=== PATIENT | female | born 1975 | race Caucasian/White ===

== ENCOUNTER → 2016-05-31 | Outpatient (REF) | payer OTHER | LOC: M SFHCWAGY 12:01 | PROVIDERS: ATTEND Nurse Practitioner Women's Health | DX: Z12.4 Encounter for screening for malignant neoplasm of cervix (principal) ==

== ENCOUNTER → 2016-08-19 | Outpatient (CLI) | payer OTHER ==
--- NOTE | 2016-08-19 12:24 | REP ---
REASON: Pain on the bottom of the foot. PRIORS: None. FINDINGS: The joint spaces are symmetric and relatively well maintained. There is no evidence of acute fracture or destructive osseous lesion. There is a rather large plantar calcaneal heel spur and a small developing retrocalcaneal heel spur. If plantar fasciitis is of clinical concern, then an MRI examination may be helpful. IMPRESSION: Negative. Signed by Steve Valverde DO 08/19/2016 03:56 P
== END ==
LOC: M LRY 11:45
PROVIDERS: ATTEND Nurse Practitioner Family
DX: M79.672 Pain in left foot (principal)

== ENCOUNTER → 2017-07-18 | Outpatient (CLI) | payer BC | LOC: M WHC 11:06 | DX: Z12.31 Encounter for screening mammogram for malignant neoplasm of breast (principal) | CPT/HCPCS: 77067 ==

== ENCOUNTER → 2017-07-18 | Outpatient (REF) | payer BC | LOC: M SFHCWAGY 11:13 | DX: Z12.4 Encounter for screening for malignant neoplasm of cervix (principal) | CPT/HCPCS: G0123 ==

== ENCOUNTER → 2018-09-19 | Outpatient (CLI) | payer BC ==
--- NOTE | 2018-09-19 20:12 | REPMRS ---
Patient History The patient states she had a clinical breast exam in 09/2018. Patient had first child at age 31. Family history of colorectal cancer at age 50 or over in maternal grandfather, pancreatic cancer at age 50 or over in maternal grandmother, pancreatic cancer and prostate cancer in maternal uncle. Taking hormonal contraceptives for 16 years. Digital Woman Screen Mammo: September 19, 2018 - Exam #: [id number] Bilateral CC and MLO view(s) were taken. Technologist: Karmen Calvillo, Technologist Prior study comparison: July 18, 2017, bilateral digital woman screen mammo performed at [facility]. April 24, 2015, digital woman screen mammo performed at [facility]. FINDINGS: There are scattered fibroglandular densities. There has been no change in the appearance of the mammogram from the prior studies. There is a mild amount of scattered fibroglandular density which is fairly symmetric. There is no interval development of dominant mass, architectural distortion, or grouped microcalcification suggestive of malignancy. 3-D tomosynthesis shows no additional findings. Assessment: BI-RADS/ACR category 1 mammogram. Negative Mammogram. Recommendation Routine screening mammogram of both breasts in 1 year (for women over age 40). This patient's Lifetime Breast Cancer Risk is estimated at 14.2 %. This mammogram was interpreted with the aid of an FDA-approved computer-aided dectection system. Electronically Signed By: Delon Gregory MD 09/19/182011
== END ==
LOC: M WHC 15:10
PROVIDERS: ATTEND Nurse Practitioner Women's Health
DX: Z12.31 Encounter for screening mammogram for malignant neoplasm of breast (principal); Z79.3 Long term (current) use of hormonal contraceptives

== ENCOUNTER 2018-12-18 09:33 | Day surgery (SDC) | payer BC ==
[~2018-12-18] VITALS: Ht 152.4 cm; Wt 107.7 kg
[~2018-12-18 09:33] MED LIST: NUVAMIS2; PLAQ200T4 PO
[2018-12-18] MEDS ORDERED: NS 1,000 ML IV ONE (10:30)
[2018-12-18] MEDS ORDERED: PROPOFOL 200 MG/20 ML VIAL As Ordered ONE ×4 (10:46→11:45)
[2018-12-18] MEDS ORDERED: LIDOCAINE 2% INJ 100 MG/5 ML SDV (FOR ANES.) As Ordered ONE (10:46)
[2018-12-18] MEDS ORDERED: EPINEPHrine 1MG/10ML SYRINGE 1.5IN As Ordered ONE (11:05)
[2018-12-18] MEDS ORDERED: EPINEPHrine INJ 1 MG/ML 1ML AMP As Ordered ONE (11:09)
--- NOTE | 2018-12-18 12:16 | ROOR ---
Patient Name: Marcia Chan Procedure Date: 12/18/2018 9:50 AM Date of : 1975 Age: 43 Room: [facility] Gender: Female Note Status: Finalized Procedure: Upper GI endoscopy Indications: Dyspepsia, Nausea Providers: Myron Barbosa MD Referring MD: Tyra Jones NP Requesting Provider: Medicines: Monitored Anesthesia Care Complications: No immediate complications. Procedure: Pre-Anesthesia Assessment: - Prior to the procedure, a History and Physical was performed, and patient medications and allergies were reviewed. The patient is competent. The risks and benefits of the procedure and the sedation options and risks were discussed with the patient. All questions were answered and informed consent was obtained. Patient identification and proposed procedure were verified by the physician, the nurse and the anesthesiologist in the procedure room. Mental Status Examination: alert and oriented. Airway Examination: normal oropharyngeal airway and neck mobility. Respiratory Examination: clear to auscultation. CV Examination: normal. Prophylactic Antibiotics: The patient does not require prophylactic antibiotics. Prior Anticoagulants: The patient has taken no previous anticoagulant or antiplatelet agents. ASA Grade Assessment: II - A patient with mild systemic disease. After reviewing the risks and benefits, the patient was deemed in satisfactory condition to undergo the procedure. The anesthesia plan was to use monitored anesthesia care (MAC). Immediately prior to administration of medications, the patient was re-assessed for adequacy to receive sedatives. The heart rate, respiratory rate, oxygen saturations, blood pressure, adequacy of pulmonary ventilation, and response to care were monitored throughout the procedure. The physical status of the patient was re-assessed after the procedure. The Endoscope was introduced through the mouth, and advanced to the second part of duodenum. The upper GI endoscopy was accomplished without difficulty. The patient tolerated the procedure well. Findings: The examined esophagus was normal. The Z-line was regular and was found 39 cm from the incisors. Scattered mild inflammation characterized by erythema and granularity was found in the gastric antrum. Biopsies were taken with a cold forceps for Helicobacter pylori testing. Verification of patient identification for the specimen was done by the physician and nurse using the patient's name, date and medical record number. Estimated blood loss was minimal. The ampulla, duodenal bulb and second portion of the duodenum were normal. Impression: - Normal esophagus. - Z-line regular, 39 cm from the incisors. - Gastritis. Biopsied. - Normal ampulla, duodenal bulb and second portion of the duodenum. Recommendation: - Patient has a contact number available for emergencies. The signs and symptoms of potential delayed complications were discussed with the patient. Return to normal activities tomorrow. Written discharge instructions were provided to the patient. - Clear liquid diet for 2 days, then advance as tolerated to resume previous diet. - Miralax 1 capful (17 grams) in 8 ounces of water PO daily for 2 weeks. - Continue present medications. - Await pathology results. - Telephone GI clinic for pathology results in 2 weeks. - Return to primary care physician. Myron Barbosa MD Myron Barbosa MD 12/18/2018 12:16:14 PM Electronically signed by Myron Barbosa MD Number of Addenda: 0 Note Initiated On: 12/18/2018 9:50 AM Estimated Blood Loss: Estimated blood loss was minimal.
--- NOTE | 2018-12-18 12:32 | ROOR ---
Patient Name: Marcia Chan Procedure Date: 12/18/2018 10:44 AM Date of : 1975 Age: 43 Room: [facility] Gender: Female Note Status: Finalized Procedure: Colonoscopy Indications: Colon cancer screening in patient at increased risk: Family history of colorectal cancer in multiple 2nd degree relatives, Personal history of familial adenomatous polyposis Providers: Myron Barbosa MD Referring MD: 1. No Referring Physician 1. No Referring Physician, Admin. Requesting Provider: Medicines: Monitored Anesthesia Care Complications: No immediate complications. Procedure: Pre-Anesthesia Assessment: - Prior to the procedure, a History and Physical was performed, and patient medications and allergies were reviewed. The patient is competent. The risks and benefits of the procedure and the sedation options and risks were discussed with the patient. All questions were answered and informed consent was obtained. Patient identification and proposed procedure were verified by the physician, the nurse and the anesthesiologist in the procedure room. Mental Status Examination: alert and oriented. Airway Examination: normal oropharyngeal airway and neck mobility. Respiratory Examination: clear to auscultation. CV Examination: normal. Prophylactic Antibiotics: The patient does not require prophylactic antibiotics. Prior Anticoagulants: The patient has taken no previous anticoagulant or antiplatelet agents. ASA Grade Assessment: II - A patient with mild systemic disease. After reviewing the risks and benefits, the patient was deemed in satisfactory condition to undergo the procedure. The anesthesia plan was to use monitored anesthesia care (MAC). Immediately prior to administration of medications, the patient was re-assessed for adequacy to receive sedatives. The heart rate, respiratory rate, oxygen saturations, blood pressure, adequacy of pulmonary ventilation, and response to care were monitored throughout the procedure. The physical status of the patient was re-assessed after the procedure. The Colonoscope was introduced through the anus and advanced to the terminal ileum, with identification of the appendiceal orifice and IC valve. The colonoscopy was performed without difficulty. The patient tolerated the procedure well. The quality of the bowel preparation was good. The terminal ileum, ileocecal valve, appendiceal orifice, and rectum were photographed. Scope insertion time was 2 minutes. Scope withdrawal time was 10 minutes. The total duration of the procedure was 35 minutes. Findings: The perianal and digital rectal examinations were normal. The terminal ileum appeared normal. A 35 mm polyp was found in the recto-sigmoid colon at 15 cm proximal to the anus. The polyp was sessile. Preparations were made for mucosal resection. Chromoscopy with methylene blue was done to karissa the borders of the lesion. 8 mL of Eleview was injected with adequate lift of the lesion from the muscularis propria. Forceps and snare mucosal resection was performed. A 35 mm area was resected. Resection and retrieval were complete. There was no bleeding at the end of the procedure. Area was successfully injected with 2 mL of a 1:10,000 solution of epinephrine for drug delivery. To close a defect after mucosal resection, five hemostatic clips were successfully placed. There was no bleeding at the end of the procedure. Verification of patient identification for the specimen was done by the physician and nurse using the patient's name, date and medical record number. Estimated blood loss was minimal. Non-bleeding external and internal hemorrhoids were found during retroflexion. The hemorrhoids were medium-sized. Impression: - The examined portion of the ileum was normal. - One 35 mm polyp at the recto-sigmoid colon at 15 cm proximal to the anus, removed with mucosal resection. Resected and retrieved. Injected. Clips were placed. - Non-bleeding external and internal hemorrhoids. - Mucosal resection was performed. Resection and retrieval were complete. Recommendation: - Patient has a contact number available for emergencies. The signs and symptoms of potential delayed complications were discussed with the patient. Return to normal activities tomorrow. Written discharge instructions were provided to the patient. - High fiber diet. - Continue present medications. - Await pathology results. - Repeat colonoscopy in 6 months for surveillance after piecemeal polypectomy and for surveillance based on pathology results. - Return to GI clinic in [facility] (address [address], [address], [place] [address]) in 3 months. Please call GI clinic @ [phone] for apppointment date and time. - Return to primary care physician. Myron Barbosa MD Myron Barbosa MD 12/18/2018 12:32:20 PM Electronically signed by Myron Barbosa MD Number of Addenda: 0 Note Initiated On: 12/18/2018 10:44 AM Estimated Blood Loss: Estimated blood loss was minimal.
[2018-12-18 12:40] VITALS: BP 191/98
== END 2018-12-18 13:19 | disposition home or self-care (01) ==
LOC: M OPP 09:33
PROVIDERS: ATTEND Internal Medicine Gastroenterology
DX: Z12.11 Encounter for screening for malignant neoplasm of colon (principal); Z86.010 Personal history of colon polyps; Z80.0 Family history of malignant neoplasm of digestive organs; K64.8 Other hemorrhoids; D12.7 Benign neoplasm of rectosigmoid junction; R10.13 Epigastric pain; R11.0 Nausea; K29.70 Gastritis, unspecified, without bleeding; Z79.899 Other long term (current) drug therapy

== ENCOUNTER → 2019-06-21 | Outpatient (CLI) | payer BC ==
--- NOTE | 2019-06-21 15:37 | REP ---
REASON: Bilateral heel pain. AP and lateral views of the right foot show plantar and retrocalcaneal heel spurs. AP and lateral views of the left foot show a large plantar calcaneal heel spur, increased slightly in size compared to the prior left foot exam of 08/19/2016. IMPRESSION: Bilateral heel spurs, as described above. Electronically Signed by Steve Valverde DO 06/21/2019 04:00 P
[2019-06-25 07:03] LABS: BETA-2 GLYCOPROTEIN I ABY IGA <9 (0-25); BETA-2 GLYCOPROTEIN I ABY IGG <9 (0-20); BETA-2 GLYCOPROTEIN I ABY IGM <9 (0-32)
== END ==
LOC: M WUC 13:01
PROVIDERS: ATTEND Nurse Practitioner
DX: M79.671 Pain in right foot (principal); M32.9 Systemic lupus erythematosus, unspecified

== ENCOUNTER → 2019-07-29 | Outpatient (CLI) | payer BC ==
[~2019-07-29] MED LIST changes: +CVS1CAP2 PO; +PROBCAP14 PO
== END ==
LOC: M LABSMTC 13:08
PROVIDERS: ATTEND Anesthesiology
DX: Z11.59 Encounter for screening for other viral diseases (principal)
CPT/HCPCS: C9803; U0003

== ENCOUNTER 2019-08-01 13:37 | Day surgery (SDC) | payer BC ==
[~2019-08-01] VITALS: Ht 152.4 cm; Wt 107.5 kg
[~2019-08-01 13:37] MED LIST changes: -CVS1CAP2 PO; -PROBCAP14 PO
[2019-08-01] MEDS ORDERED: PROBCAP14 PO (14:32)
[2019-08-01] MEDS ORDERED: CVS1CAP2 PO (14:32)
[2019-08-01] MEDS ORDERED: NS 1,000 ML IV ONE (15:00)
[2019-08-01] MEDS ORDERED: propofoL 200 MG/20 ML VIAL As Ordered ONE (15:21)
[2019-08-01] MEDS ORDERED: LIDOCAINE 2% 100MG/5ML SDV (FOR ANES.) As Ordered ONE (15:21)
--- NOTE | 2019-08-01 15:58 | ROOR ---
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 No Referring Physician 1. No Referring Physician, Admin. Requesting Provider: Medicines: Monitored Anesthesia Care Complications: No immediate complications. Procedure: Pre-Anesthesia Assessment: - Prior to the procedure, a History and Physical was performed, and patient medications and allergies were reviewed. The patient is competent. The risks and benefits of the procedure and the sedation options and risks were discussed with the patient. All questions were answered and informed consent was obtained. Patient identification and proposed procedure were verified by the physician, the nurse and the anesthesiologist in the procedure room. Mental Status Examination: alert and oriented. Airway Examination: normal oropharyngeal airway and neck mobility. Respiratory Examination: clear to auscultation. CV Examination: normal. Prophylactic Antibiotics: The patient does not require prophylactic antibiotics. Prior Anticoagulants: The patient has taken no previous anticoagulant or antiplatelet agents. ASA Grade Assessment: II - A patient with mild systemic disease. After reviewing the risks and benefits, the patient was deemed in satisfactory condition to undergo the procedure. The anesthesia plan was to use monitored anesthesia care (MAC). Immediately prior to administration of medications, the patient was re-assessed for adequacy to receive sedatives. The heart rate, respiratory rate, oxygen saturations, blood pressure, adequacy of pulmonary ventilation, and response to care were monitored throughout the procedure. The physical status of the patient was re-assessed after the procedure. The Colonoscope was introduced through the anus and advanced to the terminal ileum, with identification of the appendiceal orifice and IC valve. The colonoscopy was performed without difficulty. The patient tolerated the procedure well. The quality of the bowel preparation was good. The terminal ileum, ileocecal valve, appendiceal orifice, and rectum were photographed. Scope insertion time was 2 minutes. Scope withdrawal time was 8 minutes. The total duration of the procedure was 11 minutes. Findings: The perianal and digital rectal examinations were normal. The terminal ileum appeared normal. A 4 mm polyp was found in the sigmoid colon. The polyp was sessile. The polyp was removed with a cold biopsy forceps. Resection and retrieval were complete. Verification of patient identification for the specimen was done by the physician and nurse using the patient's name, date and medical record number. Estimated blood loss was minimal. A 15 mm post polypectomy scar was found in the rectum. The scar tissue was healthy in appearance. There was no evidence of the previous polyp. This was biopsied with a hot forceps for histology. Multiple small-mouthed diverticula were found in the sigmoid colon. There was no evidence of diverticular bleeding. Non-bleeding external and internal hemorrhoids were found during retroflexion. The hemorrhoids were small. Impression: - The examined portion of the ileum was normal. - One 4 mm polyp in the sigmoid colon, removed with a cold biopsy forceps. Resected and retrieved. - Post-polypectomy scar in the rectum. Biopsied. - Moderate diverticulosis in the sigmoid colon. There was no evidence of diverticular bleeding. - Non-bleeding external and internal hemorrhoids. Recommendation: - Patient has a contact number available for emergencies. The signs and symptoms of potential delayed complications were discussed with the patient. Return to normal activities tomorrow. Written discharge instructions were provided to the patient. - High fiber diet. - Continue present medications. - Await pathology results. - Repeat colonoscopy in 1 year for surveillance based on pathology results, due to personal history of positive genetic test result and due to personal history of colon polyps in past Colonoscopy. - Telephone GI clinic for pathology results in 2 weeks. - Return to primary care physician. Myron Barbosa MD Myron Barbosa MD 08/01/2019 3:57:54 PM Electronically signed by Myron Barbosa MD Number of Addenda: 0 Note Initiated On: 08/01/2019 3:19 PM Estimated Blood Loss: Estimated blood loss was minimal.
[2019-08-01 16:05] VITALS: BP 138/87
== END 2019-08-01 16:22 | disposition home or self-care (01) ==
LOC: M OPP 13:37
PROVIDERS: ATTEND Internal Medicine Gastroenterology
DX: K63.5 Polyp of colon (principal); K64.8 Other hemorrhoids; K57.30 Diverticulosis of large intestine without perforation or abscess without bleeding; Z98.890 Other specified postprocedural states; Z86.010 Personal history of colon polyps; Z15.09 Genetic susceptibility to other malignant neoplasm; Z79.3 Long term (current) use of hormonal contraceptives

== ENCOUNTER → 2020-07-31 | Outpatient (CLI) | payer BC ==
[~2020-07-31] MED LIST changes: +CVS1CAP2 PO; +PROBCAP14 PO
== END ==
LOC: M LABSMTC 12:29
PROVIDERS: ATTEND Anesthesiology
DX: Z01.818 Encounter for other preprocedural examination (principal); Z11.52 Encounter for screening for COVID-19

== ENCOUNTER 2020-08-05 08:34 | Day surgery (SDC) | payer BC ==
[~2020-08-05] VITALS: Ht 152.4 cm; Wt 110.2 kg
[~2020-08-05 08:34] MED LIST changes: +NS 1,000 ML IV ONE
[2020-08-05] MEDS ORDERED: LIDOCAINE 2% 100MG/5ML SDV (FOR ANES.) As Ordered ONE (10:35)
[2020-08-05] MEDS ORDERED: propofoL 200 MG/20 ML VIAL As Ordered ONE ×3 (10:35→11:07)
--- NOTE | 2020-08-05 11:15 | ROOR ---
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 Procedure: Pre-Anesthesia Assessment: - Prior to the procedure, a History and Physical was performed, and patient medications and allergies were reviewed. The patient is competent. The risks and benefits of the procedure and the sedation options and risks were discussed with the patient. All questions were answered and informed consent was obtained. Patient identification and proposed procedure were verified by the physician, the nurse and the anesthesiologist in the procedure room. Mental Status Examination: alert and oriented. Airway Examination: normal oropharyngeal airway and neck mobility. Respiratory Examination: clear to auscultation. CV Examination: normal. Prophylactic Antibiotics: The patient does not require prophylactic antibiotics. Prior Anticoagulants: The patient has taken no previous anticoagulant or antiplatelet agents. ASA Grade Assessment: II - A patient with mild systemic disease. After reviewing the risks and benefits, the patient was deemed in satisfactory condition to undergo the procedure. The anesthesia plan was to use monitored anesthesia care (MAC). Immediately prior to administration of medications, the patient was re-assessed for adequacy to receive sedatives. The heart rate, respiratory rate, oxygen saturations, blood pressure, adequacy of pulmonary ventilation, and response to care were monitored throughout the procedure. The physical status of the patient was re-assessed after the procedure. The Colonoscope was introduced through the anus and advanced to the terminal ileum, with identification of the appendiceal orifice and IC valve. The colonoscopy was performed without difficulty. The patient tolerated the procedure well. The quality of the bowel preparation was good. The terminal ileum, ileocecal valve, appendiceal orifice, and rectum were photographed. Scope insertion time was 2 minutes. Scope withdrawal time was 9 minutes. The total duration of the procedure was 12 minutes. Findings: The perianal and digital rectal examinations were normal. The terminal ileum appeared normal. A 25 mm post mucosectomy scar was found in the recto-sigmoid colon. The scar tissue was healthy in appearance. Non-bleeding external and internal hemorrhoids were found during retroflexion. The hemorrhoids were medium-sized. Impression: - The examined portion of the ileum was normal. - Post mucosectomy scar in the recto-sigmoid colon. - Non-bleeding external and internal hemorrhoids. - No specimens collected. Recommendation: - Patient has a contact number available for emergencies. The signs and symptoms of potential delayed complications were discussed with the patient. Return to normal activities tomorrow. Written discharge instructions were provided to the patient. - High fiber diet. - Continue present medications. - Repeat colonoscopy in 2 years for surveillance based on pathology results. - Return to GI clinic in 2 years. Procedure Code(s): --- Professional --- 31383, Colonoscopy, flexible; diagnostic, including collection of specimen(s) by brushing or washing, when performed (separate procedure) Diagnosis Code(s): --- Professional --- Z86.010, Personal history of colonic polyps K64.8, Other hemorrhoids Z98.890, Other specified postprocedural states Z15.09, Genetic susceptibility to other malignant neoplasm CPT copyright 2019 [employer]. All rights reserved. The codes documented in this report are preliminary and upon glove factory sewer review may be revised to meet current compliance requirements. Myron Barbosa MD Myron Barbosa MD 08/05/2020 11:15:12 AM Electronically signed by Myron Barbosa MD Number of Addenda: 0 Note Initiated On: 08/05/2020 10:47 AM Estimated Blood Loss: Estimated blood loss was minimal.
[2020-08-05 11:30] VITALS: BP 129/77
== END 2020-08-05 11:36 | disposition home or self-care (01) ==
LOC: M OPP 08:34
PROVIDERS: ATTEND Internal Medicine Gastroenterology
DX: Z12.11 Encounter for screening for malignant neoplasm of colon (principal); Z86.010 Personal history of colon polyps; K64.8 Other hemorrhoids; Z98.890 Other specified postprocedural states; Z15.09 Genetic susceptibility to other malignant neoplasm; Z97.5 Presence of (intrauterine) contraceptive device; Z79.899 Other long term (current) drug therapy; Z80.0 Family history of malignant neoplasm of digestive organs; Z80.1 Family history of malignant neoplasm of trachea, bronchus and lung; Z80.8 Family history of malignant neoplasm of other organs or systems

== ENCOUNTER → 2021-01-19 | Outpatient (CLI) | payer BC ==
[~2021-01-19] MED LIST changes: -NS 1,000 ML IV ONE
--- NOTE | 2021-01-19 16:37 | REPMRS ---
Patient History The patient states she had a clinical breast exam in 01/2021. Patient had first child at age 31. Family history of colorectal cancer at age 50 or over in maternal grandfather, pancreatic cancer at age 50 or over in maternal grandmother, pancreatic cancer and prostate cancer in maternal uncle. Taking hormonal contraceptives for 18 years. Patient states no breast complaints today. Patient has signed MRS History Sheet. Pfizer vaccine 02/18/20, 03/10/20, booster 11/13/20 L arm. Digital Woman Screen Mammo: January 19, 2021 - Exam #: [id number] Bilateral CC and MLO view(s) were taken. Technologist: Karmen Calvillo, Technologist Prior study comparison: September 19, 2018, bilateral digital woman screen mammo performed at [facility]. July 18, 2017, bilateral digital woman screen mammo performed at [facility]. FINDINGS: The breast tissue is almost entirely fat. Screening. Digital screening (2D) mammography was performed bilaterally in the CC and MLO projections. Additionally, breast tomosynthesis (3D mammography) was performed bilaterally in the CC and MLO projections. Todays exam was compared to the prior exam/exams. By history, the patient has no complaints of a palpable breast abnormality or other significant breast complaints. The breasts are unchanged in size and shape. There are no jojo-soft tissue densities or spiculated masses. There is no internal architectural distortion.Once again, stable benign appearing calcifications are seen. There are no suspicious jojo-calcific clusters. Skin thickening or nipple retraction is not present. IMPRESSION: BI-RADS Category 2- Benign Findings. There is no evidence of malignant alteration of the breasts. Followup examination recommended in one year. The Volpara volumetric breast density category is A, the breasts are almost entirely fatty. This mammogram was read with the assistance of dELiAs,an FDA approved computer aided detection system for mammography. The lifetime Tyrer-Cuzick score is 13.8 % Negative x-ray reports should not delay surgical consultation if a dominant or clinically suspicious mass is present. Not all breast cancers can be identified by mammography. Therefore, we recommend that you continue to perform regular breast self-examination and physical examination and then promptly contact your physician of any concerns or changes. Adenosis and dense breasts may obscure an underlying neoplasm. Assessment: BI-RADS/ACR category 2 mammogram. Benign Findings. Recommendation Routine screening mammogram of both breasts in 1 year. Electronically Signed By: Steve Valverde DO 01/19/21 [id number]
== END ==
LOC: M WHC 14:55
PROVIDERS: ATTEND Nurse Practitioner Women's Health
DX: Z12.31 Encounter for screening mammogram for malignant neoplasm of breast (principal)

== ENCOUNTER → 2021-01-19 | Outpatient (REF) | payer BC | LOC: M SFHCWAGY 17:40 | PROVIDERS: ATTEND Nurse Practitioner Women's Health | DX: Z12.4 Encounter for screening for malignant neoplasm of cervix (principal); Z01.419 Encounter for gynecological examination (general) (routine) without abnormal findings ==

== ENCOUNTER → 2021-08-24 | Outpatient (REF) | payer BC | LOC: M LAB REF 21:00 | PROVIDERS: ATTEND Internal Medicine | DX: J02.9 Acute pharyngitis, unspecified (principal) ==

== ENCOUNTER → 2022-01-20 | Outpatient (REF) | payer BC | LOC: M PLALAB 17:06 | PROVIDERS: ATTEND Nurse Practitioner Family | DX: Z12.4 Encounter for screening for malignant neoplasm of cervix (principal) ==

== ENCOUNTER 2022-09-26 08:13 | Day surgery (SDC) | payer BC ==
[~2022-09-26] VITALS: Ht 152.4 cm; Wt 108.4 kg
[~2022-09-26 08:13] MED LIST changes: +DOCU100C16 PO; +ETON1VAG7; +NS 1,000 ML IV ONE; -NUVAMIS2; +VITMTA PO
[2022-09-26] MEDS ORDERED: LIDOCAINE 2% 100MG/5ML SDV (FOR ANES.) As Ordered ONE (08:45)
[2022-09-26] MEDS ORDERED: propofoL 200 MG/20 ML VIAL As Ordered ONE ×3 (08:45→09:02)
[2022-09-26 09:10] VITALS: TEMP 97.1
[2022-09-26 09:28] VITALS: BP 124/66; O2SAT 99
== END 2022-09-26 09:30 | disposition home or self-care (01) ==
LOC: M OPP 08:13
PROVIDERS: ATTEND Internal Medicine Gastroenterology
DX: Z12.11 Encounter for screening for malignant neoplasm of colon (principal); Z86.010 Personal history of colon polyps; Z15.09 Genetic susceptibility to other malignant neoplasm; K63.5 Polyp of colon; K57.30 Diverticulosis of large intestine without perforation or abscess without bleeding; K64.4 Residual hemorrhoidal skin tags; Z79.3 Long term (current) use of hormonal contraceptives; Z79.899 Other long term (current) drug therapy

== ENCOUNTER → 2023-04-07 | Outpatient (REF) | payer BC ==
[~2023-04-07] MED LIST changes: -NS 1,000 ML IV ONE
== END ==
LOC: M SFHCWAGY 17:16
PROVIDERS: ATTEND Nurse Practitioner Family
DX: Z12.4 Encounter for screening for malignant neoplasm of cervix (principal)

== ENCOUNTER → 2023-04-07 | Outpatient (CLI) | payer BC | LOC: M WHC 14:48 | PROVIDERS: ATTEND Nurse Practitioner Family | DX: Z12.31 Encounter for screening mammogram for malignant neoplasm of breast (principal) ==

== ENCOUNTER 2024-02-14 08:50 | Emergency (ER) | payer BC ==
[~2024-02-14] VITALS: Ht 152.4 cm; Wt 114.6 kg
[2024-02-14 08:54] VITALS: BP 134/98; TEMP 96.6; O2SAT 99
[2024-02-14] MEDS: BENZOCAINE 20% GEL 9GM TUBE (ANBESOL MAX STRENGTH) TOP ONE (11:36)
[2024-02-14] MEDS ORDERED: AMOX875T2 PO (11:59)
[2024-02-14] MEDS ORDERED: FLUC10TA PO (11:59)
== END 2024-02-14 12:07 | disposition home or self-care (01) ==
LOC: M ED 08:50
DX: K04.7 Periapical abscess without sinus (principal); M32.9 Systemic lupus erythematosus, unspecified; Z79.2 Long term (current) use of antibiotics; Z79.899 Other long term (current) drug therapy; Z79.810 Long term (current) use of selective estrogen receptor modulators (SERMs)

== ENCOUNTER → 2024-05-10 | Outpatient (CLI) | payer BC ==
[~2024-05-10] MED LIST changes: +AMOX875T2 PO; +FLUC10TA PO
== END ==
LOC: M WHC 13:20
PROVIDERS: ATTEND Obstetrics & Gynecology
DX: Z12.31 Encounter for screening mammogram for malignant neoplasm of breast (principal)